=== PATIENT | male | born 1955 | race Caucasian/White ===

== ENCOUNTER → 2017-12-06 | Outpatient (CLI) | payer BC ==
--- NOTE | 2017-12-06 14:56 | US ---
EXAMINATION TYPE: US kidneys/renal and bladder DATE OF EXAM: 12/06/2017 COMPARISON: NONE CLINICAL HISTORY: Q61.01 RENAL CYST. Patient states renal cyst seen on recent mri EXAM MEASUREMENTS: Right Kidney: 12.2 x 5.0 x 5.6cm Left Kidney: 13.5 x 5.5 x 5.4cm Post Void Residual Volume: mL Right Kidney: 1.1cm cortical cyst seen mid level. This demonstrates increased through transmission. Left Kidney: 3.1cm mid pole cyst seen. This demonstrates increased through transmission. Bladder: wnl Bilateral Jets seen: Yes There is no evidence for hydronephrosis at this point in time. No nephrolithiasis is seen. No evie s are identified. The urinary bladder is anechoic. Bilateral ureteral jets are seen. IMPRESSION: Bilateral simple appearing renal cysts. No hydronephrosis or nephrolithiasis.
== END | disposition home or self-care (01) ==
LOC: RADUSWWP 08:08 → EDBD 08:20
PROVIDERS: ATTEND Family Medicine
DX: N28.1 Cyst of kidney, acquired (principal)
CPT/HCPCS: 76770

== ENCOUNTER → 2023-08-26 | Outpatient (CLI) | payer MEDICARE ==
--- NOTE | 2023-08-26 11:31 | XR ---
EXAMINATION TYPE: XR chest 2V DATE OF EXAM: 08/26/2023 COMPARISON: 07/11/2013 TECHNIQUE: PA and lateral views submitted. HISTORY: Cough FINDINGS: The lungs are clear and there is no pneumothorax, pleural effusion, or focal pneumonia. Heart size normal and no overt failure. Osseous structures demonstrate hypertrophic and degenerative changes of the spine. IMPRESSION: 1. No acute process.
== END | disposition home or self-care (01) ==
LOC: RADXRMAIN 10:42
PROVIDERS: ATTEND Family Medicine
DX: R05.3 Chronic cough (principal)
CPT/HCPCS: 71046

== ENCOUNTER 2023-10-14 09:38 | Day surgery (SDC) | payer MEDICARE ==
[2023-10-14] MEDS: IV FLUID CONTINUATION 1,000 ML IV ONE (10:10)
[2023-10-14] MEDS: LACTATED RINGERS 1,000 ML IV SCH (10:15)
[2023-10-14] MEDS ORDERED: LIDOCAINE 1% INJ 10MG/ML (20 ML MDV) ONE (10:32)
[2023-10-14] MEDS ORDERED: PROPOFOL 10 MG/ML 20 ML VIAL IV ONE (10:32)
[2023-10-14 10:35] VITALS: RESP 16; TEMP 97.6
--- NOTE | 2023-10-14 10:53 | P.PCN ---
Date of Procedure: 10/14/23 Procedure(s) Performed: Brief history: Patient is a pleasant 68-year-old pleasant white male scheduled for an elective upper endoscopy as well as colonoscopy as a part of evaluation of GERD and history of colon polyp. Lately has been having intermittent chronic rales and throat discomfort. He is on Protonix 40 mg daily. Procedure performed: Esophagogastroduodenoscopy with biopsy Colonoscopy Preoperative diagnosis: GERD History of colon polyps Anesthesia: [place] Procedure: After informed consent was obtained from the patient was brought into the endoscopy unit and IV sedation was administered by anesthesia under continuous monitoring. Initially upper endoscopy was done. The Olympus GF 160 video endoscope was inserted inserted into the mouth and esophagus intubated without any difficulty and was gradually advanced into the stomach and duodenum and carefully examined. The bulb and second part of the duodenum appeared normal. The scope was then withdrawn into the stomach adequately insufflated with air and upon careful examination the antrum and body, cardia and fundus appeared normal. The scope was then withdrawn into the esophagus. Small hiatal hernia noted. The GE junction was located at 40 cm to the incisors. It appeared regular with no erythema erosions or ulcerations. Rest of the esophagus appeared normal. Biopsies were done from the mid and distal esophagus patient tolerated the procedure well. At this time the patient continued to remain sedation. Initial digital rectal examination was normal. Olympus CF 160 video colonoscope was then inserted into the rectum and gradually advanced to the cecum without any difficulty. Careful examination was performed as the scope was gradually being withdrawn. The prep was excellent. The cecum, ascending colon, transverse colon, descending colon, sigmoid colon and rectum appeared normal. Retroflexion was performed in the rectum and no lesions were noted. Scattered sigmoid diverticulosis. Patient tolerated the procedure well. Impression: 1. Upper endoscopy revealed small hiatal hernia but no evidence of esophagitis or Hager's esophagus 2. Colonoscopy revealed scattered sigmoid diverticulosis but no evidence of colorectal neoplasia Recommendations: Findings of this examination were discussed with the patient as well as his family. He was advised to follow the biopsy results. Continue with Protonix 40 mg daily and follow antireflux measures. Recommend repeat screening colonoscopy in 10 years
[2023-10-14 11:31] VITALS: BP 108/64; PULSE 65
== END 2023-10-14 11:55 | disposition home or self-care (01) ==
LOC: ORWHC2ENDO 09:38
PROVIDERS: ATTEND Internal Medicine Gastroenterology
DX: Z12.11 Encounter for screening for malignant neoplasm of colon (principal); K57.30 Diverticulosis of large intestine without perforation or abscess without bleeding; K21.9 Gastro-esophageal reflux disease without esophagitis; K44.9 Diaphragmatic hernia without obstruction or gangrene; Z79.899 Other long term (current) drug therapy; Z86.010 Personal history of colon polyps
CPT/HCPCS: 88305; 45378; 43239; J2001; J2704

== ENCOUNTER → 2023-11-04 | Outpatient (CLI) | payer MEDICARE ==
--- NOTE | 2023-11-04 10:50 | US ---
EXAMINATION TYPE: US Aorta Screening DATE OF EXAM: 11/04/2023 COMPARISON: NONE CLINICAL INDICATION: Male, 68 years old with history of Z13.6 SCREENING FOR CARDIOVASCULAR DISEASES; AAA screening TECHNIQUE: Multiple sonographic images of the abdominal aorta are obtained. FINDINGS: EXAM MEASUREMENTS: Abdominal Aorta: Proximal: 2.5 x 2.6 cm Mid: 2.0 x 2.0 cm Distal: 1.9 x 1.9 cm Bifurcation: Right Iliac: 1.1 x 1.1 cm Left Iliac: 1.0 x 1.0 cm Proximal portion of aorta upper limits of normal for size- no evidence of AAA IMPRESSION: No abdominal aortic aneurysm.
== END | disposition home or self-care (01) ==
LOC: RADUSWWP 07:03
PROVIDERS: ATTEND Family Medicine
DX: Z13.6 Encounter for screening for cardiovascular disorders (principal)
CPT/HCPCS: 76706

== ENCOUNTER → 2024-07-06 | Outpatient (CLI) | payer MEDICARE ==
--- NOTE | 2024-07-06 13:01 | CT ---
EXAMINATION TYPE: CT chest wo con DATE OF EXAM: 07/06/2024 8:56 AM COMPARISON: None. CLINICAL INDICATION: Male, 69 years old with history of R91.1 SOLITARY PULMONARY NODULE, lung nodule TECHNIQUE: Axial images were obtained at 5 mm thick sections. Reconstructed images are reviewed on t [employer] computer in the coronal plane. Contrast used: mL of , (none if empty) Oral contrast used: (none if empty) CT DLP: 501 mGycm, Automated exposure control for dose reduction was used. FINDINGS: Portion of the thyroid visualized is normal. There is a subtle infiltrate or density in the anterior right midlung measuring 0.6 cm. Series 4 imag e 31. Finding is nonspecific. Short-term follow-up in 6 months is recommended. Small opacities in the posterior lateral right lung measuring approximately 0.3 cm. Series 4 image 37 . Peripheral posterior lateral left lung nodules present at this level measuring 0.6 cm. Series 4 alexandra ge 37. There is a pleural-based density along the medial posterior right lung measuring 1.0 x 0.5 cm. 3.7 An additional punctate pleural-based density measuring 0.4 cm on the right lateral lower lung field. Se mary 4 image 41 pleural-based densities in the posterior lateral left lung base measuring 0.7 cm. Ser ies 4 image 44. Small 0.4 cm nodular density is just above the left diaphragm the posterior sulcus, s eries 4 image 56. No enlarged mediastinal or hilar adenopathy is evident. The ascending aorta diameter at the level o f the main pulmonary artery is 3.7 cm. The main pulmonary artery diameter at the bifurcation is 2.[address] sections are obtained through the upper abdomen. Abdomen is essentially unremarkable. IMPRESSION: 1. Scattered small pleural-based densities and intraparenchymal lung findings. Short-term follow-up C T chest in 6 months recommended. [facility], Workstation: [id number] [employer], 07/06/2024 12:59 PM
== END | disposition home or self-care (01) ==
LOC: RADCTMAIN 08:40
PROVIDERS: ATTEND Family Medicine
DX: R91.1 Solitary pulmonary nodule (principal); J98.4 Other disorders of lung
CPT/HCPCS: 71250